=== PATIENT | male | born 1995 | race Caucasian/White ===

== ENCOUNTER 2018-12-23 20:57 | Emergency (ER) | payer BC ==
[~2018-12-23] VITALS: Ht 175.3 cm; Wt 99.8 kg
[2018-12-23 21:22] VITALS: BP 153/89
== END 2018-12-24 00:10 | disposition left against medical advice (07) ==
LOC: ER 20:57
DX: R51 Headache (principal); Z53.21 Procedure and treatment not carried out due to patient leaving prior to being seen by health care provider; V43.52XA Car driver injured in collision with other type car in traffic accident, initial encounter; Y93.89 Activity, other specified; Y99.8 Other external cause status; Y92.410 Unspecified street and highway as the place of occurrence of the external cause
CPT/HCPCS: 70450